=== PATIENT | female | born 1995 | race Caucasian/White ===

== ENCOUNTER 2017-06-15 13:13 | Emergency (ER) | payer SELFPAY ==
[2017-06-15 14:13] VITALS: BP 101/64
== END 2017-06-15 14:15 | disposition home or self-care (01) ==
LOC: EME 13:13
DX: S69.92XA Unspecified injury of left wrist, hand and finger(s), initial encounter (principal); Y09 Assault by unspecified means; F17.200 Nicotine dependence, unspecified, uncomplicated
CPT/HCPCS: 73140; 99281; 99284